=== PATIENT | female | born 1995 | race Caucasian/White ===

== ENCOUNTER 2018-08-06 16:29 | Emergency (ER) | payer BC ==
--- NOTE | 2018-08-06 16:34 | ERPHSYRPT ---
- History of Present Illness Time Seen by Provider: 08/06/18 16:33 Historian: patient, EMS Exam Limitations: no limitations Physician History: 22 y/o white female presents with sudden onset of suprapubic abd pain. had associated vaginal bleeding with urination. no diarrhea. pt started on a new ocp approx 1 month ago. lmp was in may 2018. pt brought into ed by ems. pt given fentanyl iv en route to here Timing/Duration: today, worse Quality: sharpness, stabbing Abdominal Pain Onset Location: suprapubic Pain Radiation: no radiation Severity of Pain-Max: moderate Severity of Pain-Current: mild Modifying Factors: Improves With: analgesics (helped) Associated Symptoms: nausea, vomiting Previous symptoms: no prior history Allergies/Adverse Reactions: No Known Drug Allergies Allergy (Verified 08/06/18 16:38) Home Medications: Norgestimate-Ethinyl Estradiol [Sprintec 28 Day Tablet] 1 tab PO DAILY 08/06/18 [History] - Review of Systems Constitutional: No Symptoms Eyes: No Symptoms Ears, Nose, & Throat: No Symptoms Respiratory: No Symptoms Cardiac: No Symptoms Abdominal/Gastrointestinal: Abdominal Pain, Nausea, Vomiting, No Diarrhea Genitourinary Symptoms: No Symptoms Musculoskeletal: No Symptoms Skin: No Symptoms Neurological: No Symptoms Psychological: No Symptoms Endocrine: No Symptoms Hematologic/Lymphatic: No Symptoms Immunological/Allergic: No Symptoms All Other Systems: Reviewed and Negative - Past Medical History Neurological History: No Pertinent History ENT History: No Pertinent History Cardiac History: No Pertinent History Respiratory History: No Pertinent History Endocrine Medical History: No Pertinent History Musculoskeletal History: No Pertinent History GI Medical History: No Pertinent History History: No Pertinent History Female Reproductive Disorders: Menstrual Problems - Past Surgical History Neuro Surgical History: No Pertinent History Cardiac: No Pertinent History Respiratory: No Pertinent History Gastrointestinal: No Pertinent History Genitourinary: No Pertinent History Musculoskeletal: No Pertinent History Female Surgical History: No Pertinent History - Nursing Vital Signs Nursing Vital Signs: Initial Vital Signs Temperature 98.0 F 08/06/18 16:31 Pulse Rate 85 08/06/18 16:31 Respiratory Rate 16 08/06/18 16:31 Blood Pressure 140/79 08/06/18 16:31 O2 Sat by Pulse Oximetry 96 08/06/18 16:31 Pain Scale Pain Intensity 6 - Physical Exam General Appearance: mild distress, alert, anxiety Eye Exam: PERRL/EOMI Ears, Nose, Throat Exam: normal ENT inspection, moist mucous membranes Neck Exam: normal inspection, non-tender, supple, full range of motion Respiratory Exam: normal breath sounds, lungs clear, airway intact, No chest tenderness, No respiratory distress Cardiovascular Exam: regular rate/rhythm, normal heart sounds, normal peripheral pulses Gastrointestinal/Abdomen Exam: soft, normal bowel sounds, tenderness (mild suprapubic), guarding, No rebound Pelvic Exam: not done Rectal Exam: not done Back Exam: normal inspection, normal range of motion, No CVA tenderness, No vertebral tenderness Neurologic Exam: alert, oriented x 3, cooperative, account manager II-XII nml as tested Skin Exam: normal color, warm, dry Lymphatic Exam: No adenopathy SpO2 Interpretation: normal O2 Delivery: Room Air - Course Nursing assessment & vital signs reviewed: Yes Ordered Tests: Active Orders 24 hr Category Date Time Status ABDOMEN AND PELVIS W/0 CONTRAS [CT] Stat Exams 08/06/18 16:37 Taken AMYLASE Stat Lab 08/06/18 16:45 Completed CBC W DIFF Stat Lab 08/06/18 16:45 Completed CMP Stat Lab 08/06/18 16:45 Completed HCG QUALITATIVE,SERUM Stat Lab 08/06/18 16:45 Completed LIPASE Stat Lab 08/06/18 16:45 Completed Lactic Acid Stat Lab 08/06/18 17:00 Results UA W/RFX UR CULTURE Stat Lab 08/06/18 18:09 Completed Medication Summary Generic Name Dose Route Start Last Admin Trade Name Freq PRN Reason Stop Dose Admin Sodium Chloride 1,000 mls @ 999 mls/hr 08/06/18 18:32 Sodium Chloride 0.9% 1000 Ml IV 08/06/18 19:32 .Q1H1M STA Discontinued Medications Generic Name Dose Route Start Last Admin Trade Name Freq PRN Reason Stop Dose Admin Hydromorphone HCl 0.5 mg 08/06/18 16:38 08/06/18 17:46 Hydromorphone 1 Mg/Ml Ampule IV 08/06/18 16:39 0.5 mg STAT ONE Administration Hydromorphone HCl Confirm 08/06/18 17:44 Hydromorphone 1 Mg/Ml Ampule Administered 08/06/18 17:45 Dose 1 mg .ROUTE .STK-MED ONE Sodium Chloride 1,000 mls @ 999 mls/hr 08/06/18 16:38 08/06/18 17:59 Sodium Chloride 0.9% 1000 Ml IV 08/06/18 17:38 Infused .Q1H1M STA Infusion Sodium Chloride Confirm 08/06/18 16:49 Sodium Chloride 0.9% 1000 Ml Administered 08/06/18 16:50 Dose 1,000 mls @ ud .ROUTE .STK-MED ONE Sodium Chloride Confirm 08/06/18 17:44 Sodium Chloride 0.9% 1000 Ml Administered 08/06/18 17:45 Dose 1,000 mls @ ud .ROUTE .STK-MED ONE Ondansetron HCl 4 mg 08/06/18 16:38 08/06/18 17:46 Zofran 4 Mg/2 Ml Vial IV 08/06/18 16:39 4 mg STAT ONE Administration Ondansetron HCl Confirm 08/06/18 17:44 Zofran 4 Mg/2 Ml Vial Administered 08/06/18 17:45 Dose 4 mg .ROUTE .STK-MED ONE Lab/Rad Data: Laboratory Result Diagrams 08/06/18 16:45 08/06/18 16:45 Laboratory Results 08/06/18 08/06/18 08/06/18 Range/Units 18:09 17:00 16:45 WBC (4.0-10.5) K/mm3 RBC (4.1-5.4) M/mm3 Hgb (12.0-16.0) gm/dl Hct (35-47) % MCV (78-100) fl MCH (26-32) pg MCHC (32-36) g/dl RDW (11.5-14.0) % Plt Count (150-450) K/mm3 MPV (6-9.5) fl Gran % (36.0-66.0) % Eos # (Auto) (0-0.5) Absolute Lymphs (auto) (1.0-4.6) Absolute Monos (auto) (0.0-1.3) Lymphocytes % (24.0-44.0) % Monocytes % (0.0-12.0) % Eosinophils % (0.00-5.0) % Basophils % (0.0-0.4) % Absolute Granulocytes (1.4-6.9) Basophils # (0-0.4) Sodium (137-145) mmol/L Potassium (3.5-5.1) mmol/L Chloride (98-107) mmol/L Carbon Dioxide (22-30) mmol/L Anion Gap (5-15) MEQ/L BUN (7-17) mg/dL Creatinine (0.52-1.04) mg/dL Estimated GFR ML/MIN Glucose (74-106) mg/dL Lactic Acid 2.8 H (0.4-2.0) Calcium (8.4-10.2) mg/dL Total Bilirubin (0.2-1.3) mg/dL AST (14-36) U/L ALT (0-35) U/L Alkaline Phosphatase (38-126) U/L Serum Total Protein (6.3-8.2) g/dL Albumin (3.5-5.0) g/dL Amylase (30-110) U/L Lipase (23-300) U/L Serum , Qual NEGATIVE (Negative) Urine Color YELLOW (YELLOW) Urine Appearance CLEAR (CLEAR) Urine pH 5.0 (5-6) Ur Specific [place] 1.020 (1.005-1.025) Urine Protein NEGATIVE (Negative) Urine Ketones MODERATE (NEGATIVE) Urine Blood MODERATE (0-5) Cruz/ul Urine Nitrite NEGATIVE (NEGATIVE) Urine Bilirubin NEGATIVE (NEGATIVE) Urine Urobilinogen NEGATIVE (0-1) mg/dL Ur Leukocyte Esterase NEGATIVE (NEGATIVE) Urine WBC (Auto) 3-5 (0-5) /HPF Urine RBC (Auto) 0-2 (0-2) /HPF U Epithel Cells (Auto) RARE (FEW) /HPF Urine Bacteria (Auto) RARE (NEGATIVE) /HPF Other Casts (Auto) NEGATIVE (NEGATIVE) /LPF Urine Mucus (Auto) MODERATE (NEGATIVE) /HPF Urine Culture Reflexed NO (NO) Urine Glucose NEGATIVE (NEGATIVE) mg/dL 08/06/18 08/06/18 Range/Units 16:45 16:45 WBC 15.0 H (4.0-10.5) K/mm3 RBC 4.34 (4.1-5.4) M/mm3 Hgb 13.2 (12.0-16.0) gm/dl Hct 39.3 (35-47) % MCV 90.6 (78-100) fl MCH 30.4 (26-32) pg MCHC 33.6 (32-36) g/dl RDW 12.0 (11.5-14.0) % Plt Count 302 (150-450) K/mm3 MPV 9.9 H (6-9.5) fl Gran % 83.6 H (36.0-66.0) % Eos # (Auto) 0.07 (0-0.5) Absolute Lymphs (auto) 1.80 (1.0-4.6) Absolute Monos (auto) 0.57 (0.0-1.3) Lymphocytes % 12.0 L (24.0-44.0) % Monocytes % 3.8 (0.0-12.0) % Eosinophils % 0.5 (0.00-5.0) % Basophils % 0.1 (0.0-0.4) % Absolute Granulocytes 12.51 H (1.4-6.9) Basophils # 0.02 (0-0.4) Sodium 138 (137-145) mmol/L Potassium 3.7 (3.5-5.1) mmol/L Chloride 106 (98-107) mmol/L Carbon Dioxide 19 L (22-30) mmol/L Anion Gap 16.9 H (5-15) MEQ/L BUN 18 H (7-17) mg/dL Creatinine 0.71 (0.52-1.04) mg/dL Estimated GFR > 60.0 ML/MIN Glucose 125 H (74-106) mg/dL Lactic Acid (0.4-2.0) Calcium 9.0 (8.4-10.2) mg/dL Total Bilirubin 0.60 (0.2-1.3) mg/dL AST 23 (14-36) U/L ALT 14 (0-35) U/L Alkaline Phosphatase 54 (38-126) U/L Serum Total Protein 7.6 (6.3-8.2) g/dL Albumin 4.1 (3.5-5.0) g/dL Amylase 103 (30-110) U/L Lipase 91 (23-300) U/L Serum , Qual (Negative) Urine Color (YELLOW) Urine Appearance (CLEAR) Urine pH (5-6) Ur Specific [place] (1.005-1.025) Urine Protein (Negative) Urine Ketones (NEGATIVE) Urine Blood (0-5) Cruz/ul Urine Nitrite (NEGATIVE) Urine Bilirubin (NEGATIVE) Urine Urobilinogen (0-1) mg/dL Ur Leukocyte Esterase (NEGATIVE) Urine WBC (Auto) (0-5) /HPF Urine RBC (Auto) (0-2) /HPF U Epithel Cells (Auto) (FEW) /HPF Urine Bacteria (Auto) (NEGATIVE) /HPF Other Casts (Auto) (NEGATIVE) /LPF Urine Mucus (Auto) (NEGATIVE) /HPF Urine Culture Reflexed (NO) Urine Glucose (NEGATIVE) mg/dL - Progress Progress: improved, re-examined Progress Note: 08/06/18 19:02 pt states she is feeling much better. does not want any more pain meds. ct scan abd/pelvis-right colon fecal stasis. otherwise negative Counseled pt/family regarding: lab results, diagnosis, need for follow-up, rad results - Departure Departure Disposition: Home Clinical Impression: Abdominal pain, Dehydration Condition: Stable Critical Care Time: No Additional Instructions: drink plenty of fluids. follow up with structural manager for further management. use ibuprofen or naproxen for pain Prescriptions: Tramadol HCl 50 mg [Ultram 50 mg] 50 mg PO TID PRN #15 tablet PRN Reason: Moderate Pain
[2018-08-06 16:38] VITALS: O2SAT 96
[2018-08-06] MEDS ORDERED: Zofran 4 MG/2 ML VIAL IV ONE (16:38)
[2018-08-06] MEDS ORDERED: Hydromorphone 1 mg/ml Ampule IV ONE (16:38)
[2018-08-06] MEDS ORDERED: Sodium Chloride 0.9% 1000 ML 1,000 ML IV STA ×2 (16:38→18:32)
[2018-08-06] MEDS ORDERED: Sodium Chloride 0.9% 1000 ML 0 ML ONE (16:49)
[2018-08-06 16:53] LABS: BASOPHIL % 0.1 % (0.0-0.4); Basophil (Absolute #) 0.02 (0-0.4); Eosinophil % 0.5 % (0.00-5.0); Eosinophil (Absolute #) 0.07 (0-0.5); Granulocyte Absolute (ANC) 12.51 (1.4-6.9); Granulocytes % 83.6 % (36.0-66.0); Hematocrit 39.3 % (35-47); Hemoglobin 13.2 gm/dl (12.0-16.0); Mean Cell Volume 90.6 fl (78-100); Mean Corpuscular Hemoglobin 30.4 pg (26-32); Mean Corpuscular Hgb Concent. 33.6 g/dl (32-36); Mean Platelet Volume 9.9 fl (6-9.5); Monocytes % 3.8 % (0.0-12.0); Platelet Count 302 K/mm3 (150-450); Red Blood Count 4.34 M/mm3 (4.1-5.4)
[2018-08-06 17:02] LABS: Lactic Acid 2.8 (0.4-2.0)
[2018-08-06 17:08] LABS: ALBUMIN 4.1 g/dL (3.5-5.0); ALKALINE PHOSPHATASE 54 U/L (38-126); AMYLASE 103 U/L (30-110); ANION GAP 16.9 MEQ/L (5-15); BLOOD UREA NITROGEN 18 mg/dL (7-17); CHLORIDE 106 mmol/L (98-107); Carbon Dioxide 19 mmol/L (22-30); Creatinine 1 0.71 mg/dL (0.52-1.04); Glucose 125 mg/dL (74-106); LIPASE 91 U/L (23-300); Potassium 3.7 mmol/L (3.5-5.1); SGOT/AST 23 U/L (14-36); SGPT/ALT 14 U/L (0-35); SODIUM 138 mmol/L (137-145); Total Protein 7.6 g/dL (6.3-8.2)
[2018-08-06] MEDS ORDERED: Zofran 4 MG/2 ML VIAL ONE (17:44)
[2018-08-06] MEDS ORDERED: Sodium Chloride 0.9% 1000 ML 1,000 ML ONE (17:44)
[2018-08-06] MEDS ORDERED: Hydromorphone 1 mg/ml Ampule ONE (17:44)
[2018-08-06 17:52] VITALS: BP 126/94; PULSE 102
[2018-08-06 18:22] LABS: Appearance CLEAR (CLEAR); Bacteria RARE /HPF (NEGATIVE); Bilirubin NEGATIVE (NEGATIVE); Blood MODERATE Ery/ul (0-5); Epithelial Cells RARE /HPF (FEW); Glucose NEGATIVE (NEGATIVE); Ketones MODERATE (NEGATIVE); Leukocyte Esterase NEGATIVE (NEGATIVE); Mucus MODERATE /HPF (NEGATIVE); Nitrite NEGATIVE (NEGATIVE); Protein,Urine Dip NEGATIVE (Negative); RBC 0-2 /HPF (0-2); Urobilinogen NEGATIVE mg/dL (0-1)
--- NOTE | 2018-08-07 08:38 | XRAY ---
Indication: Abdominal pain. Vomiting. Vaginal bleeding. Multiple contiguous axial images obtained through the abdomen and pelvis without contrast using renal stone protocol. Comparison: None Lung bases are clear. Heart is not enlarged. No renal calculus or evidence for obstructive uropathy in either system. Noncontrasted stomach and bowel loops appear nonobstructed. Normal appendix. Moderate fecal debris in the right hemicolon. No free fluid/air. Remaining liver, gallbladder, pancreas, spleen, adrenal glands, kidneys, ureters, bladder, uterus, and aorta appear unremarkable for noncontrast exam. Osseous structures intact. No ventral or inguinal hernias. Impression: 1. Negative renal calculus or evidence for obstructive uropathy. 2. Incidental fecal stasis without obstruction. 3. Remaining CT abdomen/pelvis without contrast exam is negative. CT DI 11.82
== END 2018-08-06 19:29 | disposition home or self-care (01) ==
LOC: ED 16:29
DX: R10.9 Unspecified abdominal pain (principal); E86.0 Dehydration
CPT/HCPCS: 36415; 74176; 80053; 81001; 81025; 82150; 83605; 83690; 85025; 96360; 96374; 96375; 99284; J1170; J2405

== ENCOUNTER 2023-04-16 05:53 | Day surgery (SDC) | payer OTHER, BC ==
[~2023-04-16 05:53] MED LIST: CEFAZOLIN 2 GM-D5W BAG** 2 GM/50 ML ML IV ONE; Lactated Ringers 1,000 ML IV ONE; NEURONTIN ONE; TYLENOL EXTRA STRENGTH 500 MG ONE; Transderm Scop 1.5MG Patch ONE; celeBREX 100 MG ONE
[2023-04-16] MEDS: Lactated Ringers 1,000 ML IV SCH (05:58)
[2023-04-16] MEDS: TYLENOL EXTRA STRENGTH 500 MG PO ONE (05:59)
[2023-04-16] MEDS: celeBREX 100 MG PO ONE (05:59)
[2023-04-16] MEDS: CEFAZOLIN 2 GM-D5W BAG** 2 GM/50 ML ML IV SCH (05:59)
[2023-04-16] MEDS: Decadron 4 MG PO ONE (05:59)
[2023-04-16] MEDS: NEURONTIN PO ONE (06:00)
[2023-04-16] MEDS: Transderm Scop 1.5MG Patch TOP ONE (06:00)
[2023-04-16] MEDS ORDERED: Decadron 4 MG INJ IV ONE (06:00)
[2023-04-16 06:11] LABS: HCG URINE TEST NEGATIVE (NEGATIVE)
[2023-04-16] MEDS ORDERED: Xylocaine-Mpf 2% 5 Ml Vial ONE (06:25)
[2023-04-16] MEDS ORDERED: Epinephrine Preservative Free 1 MG/ML ONE (06:25)
[2023-04-16] MEDS ORDERED: Versed 2 MG/2 ML Injection ONE (06:25)
[2023-04-16] MEDS ORDERED: Naropin 0.5% 30 ML VIAL ONE (06:25)
[2023-04-16] MEDS ORDERED: SUBLIMAZE 100 MCG/2 ML ONE ×2 (06:26→07:05)
[2023-04-16 06:31] LABS: Hematocrit 43.6 % (35-47); Hemoglobin 13.9 g/dL (12.0-16.0); Mean Cell Volume 87.4 fL (78-100); Mean Corpuscular Hemoglobin 27.9 pg (26-32); Mean Corpuscular Hgb Concent. 31.9 g/dL (32-36); Mean Platelet Volume 9.4 fL (7.5-11.0); Platelet Count 327 x10^3/uL (150-450); Red Blood Count 4.99 x10^6/uL (4.1-5.4); Red Cell Distribution Width 12.7 % (11.5-14.0)
[2023-04-16] MEDS ORDERED: Zofran 4 MG/2 ML VIAL ONE (06:34)
[2023-04-16] MEDS ORDERED: BRIDION 200MG/2ML IV ONE (06:34)
[2023-04-16] MEDS ORDERED: Zemuron 100 MG/10 ML ONE ×3 (06:34→08:49)
[2023-04-16] MEDS ORDERED: Decadron 4 MG INJ ONE (06:34)
[2023-04-16] MEDS ORDERED: DIPRIVAN 200 MG/20 ML IV ONE (06:35)
[2023-04-16 06:38] LABS: ALBUMIN 4.7 g/dL (3.5-5.0); ANION GAP 12.7 MEQ/L (5-15); BILIRUBIN,TOTAL 0.4 mg/dL (0.2-1.3); Calcium 9.8 mg/dL (8.4-10.2); Creatinine 1 0.7 mg/dL (0.52-1.04); INR 0.92 (0.8-3.0); PROTIME 10.1 SECONDS (9.4-12.5); Total Protein 8.2 g/dL (6.3-8.2)
[2023-04-16] MEDS ORDERED: Lactated Ringers 1,000 ML IV ONE ×2 (07:20→11:18)
[2023-04-16] MEDS ORDERED: REMIFENTANIL HCL IV ONE (09:01)
--- NOTE | 2023-04-16 10:49 | XRAY ---
Indication: Right foot pierre calcanealosteotomy, 2nd/3rd tarsometatarsal arthrodesis, and 1st lapidus arthrodesis. Intraoperative fluoroscopy provided for 6 minutes 59 seconds. 35 digital spot images submitted for interpretation ultimately demonstrates osteotomy anterior calcaneus and 1st-3rd tarsometatarsal arthrodesis. Correlate with intraoperative findings/report.
[2023-04-16 12:12] LABS: Appearance Clear (Clear); Bacteria None Seen /HPF (None Seen); Bilirubin Negative (Negative); Blood Negative (Negative); Epithelial Cells None Seen /HPF (None Seen); Glucose, Urine Negative (Negative); Hyaline Casts NONE SEEN /LPF (0-2); Ketones Negative (Negative); Leukocyte Esterase Negative (Negative); Nitrite Negative (Negative); Ph 6.5 (4.6-8.0); Protein,Urine Dip Negative (Negative); RBC 0-2 /HPF (0-5); Urobilinogen 0.2 mg/dL (0.2); WBC 0-2 /HPF (0-5)
[2023-04-16 12:38] VITALS: RESP 16
[2023-04-16] MEDS: Compazine 10 MG/2 ML IV ONE (12:45)
[2023-04-16 13:16] VITALS: O2SAT 96
[2023-04-16 13:32] VITALS: BP 111/67; PULSE 97; TEMP 98.2
--- NOTE | 2023-04-16 13:45 | XRAY ---
Six minutes and 59 seconds of fluoroscopy was used in surgery for a right foot pierre calcanealosteotomy, 2nd/3rd tarsometatarsal arthrodesis, and 1st lapidus arthrodesis.
--- NOTE | 2023-04-17 11:05 | OP ---
SURGERY DATE/TIME: 04/16/2023 0706 PREOPERATIVE DIAGNOSES: 1) Gastrocnemius equinus. 2) Right foot pain. 3) Skewfoot. 4) Pes planus. 5) Metatarsus adductus. 6) Ganglion cyst. 7) Hallux valgus. POSTOPERATIVE DIAGNOSES: 1) Gastrocnemius equinus. 2) Right foot pain. 3) Skewfoot. 4) Pes planus. 5) Metatarsus adductus. 6) Ganglion cyst. 7) Hallux valgus. PROCEDURES: 1) Gastrocnemius resection. 2) Tarsometatarsal joint arthrodesis 2 and 3 with skewfoot correction. 3) Lapidus arthrodesis. 4) Silver osteotomy. 5) Medial collateral ligament soft tissue augmentation with internal brace. 6) Zaidi calcaneal osteotomy. 7) Ganglion cyst excision. SURGEON: Evangelista Blackburn DPM. HAND FABRIC CUTTER: None. ANESTHESIA: General plus a preoperative popliteal and saphenous block to the right lower extremity. See anesthesia report for details. HEMOSTASIS: Thigh tourniquet set 300 mm of Mercury for 120 total tourniquet time minutes. ESTIMATED BLOOD LOSS: Approximately 20 cc. MATERIALS: Theron InCore Lapidus first tarsometatarsal 3.4 x 24 mm x2 for second and third tarsometatarsal joint arthrodesis. RIPTIDE wedge 21 x 17.5 x 7 with demineralized bone matrix and then a 1.45 soft tissue anchor for the soft tissue augmentation first metatarsophalangeal joint. 4-0 Monocryl, 3-0 Nylon, 2-0 Vicryl, 1 cc demineralized bone matrix (DBM). INJECTABLES: See anesthesia report for details. INDICATION FOR SURGERY: Georgette is a very pleasant 27-year-old patient known to my service for pain associated with a bunion to her right foot. The patient was seen in the past primarily for onychomycosis for which we are currently treating. However, she did have some pain associated with a ganglion cyst that has occurred over the last two years and slowly growing over the last two years as well as bunion deformity to the right foot that causes a significant amount of pain to the bunion itself and over the dorsal aspect of the mid foot. 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 The patient understood at that time after repeat surgical consultations that this was a bit more complicated than initially expected than a simple bunion. From that standpoint, discussion was held in regards to how we correct skewfoot as there is a pes planus foot type at the rear foot, higher arch at the mid foot and metatarsus adductus of the forefoot that all need to be corrected in order to get rid of the bone deformity itself. Initially when consulting regarding the bone, usually about three weeks for nonweight bearing. However, given that there would be more reconstructive component to the procedure, the patient understands she will need to be nonweight bearing for approximately 6 weeks in the postoperative period for full weightbearing to tolerance will be at 6 to 12 weeks in a pair of shoes. The patient understands this. She was also consented for any risks, complications and benefits of surgical intervention which were discussed at length. Potential complications were discussed including but not limited to infection, hematoma, seroma, possibility of delayed wound healing, nonwound healing, possible failure of surgical intervention, possible under correction and possible continued pain following the procedure. The patient understands these risks. No guarantees were provided as to the outcome. Primarily with these procedures over the dorsal aspect of the mid foot sometimes there is nerve compression injury or possible nerve damage that can last for some period of time if not permanent this is one degree of the process that we stress with this specific procedure. The patient understands this and wishes to proceed at this time. DESCRIPTION OF PROCEDURE AND FINDINGS: The patient was brought into the postoperative anesthesia care unit and provided a popliteal and saphenous block. See anesthesia report for details. Following this, the patient was brought into the OR and placed on the OR table in the supine position. At this time, general anesthesia was administered until the patient was adequately sedated. A well-padded thigh tourniquet was applied and the pressure was set to 300 mm of Mercury. At this time, the right lower extremity was prepped and draped in the typical sterile fashion and lowered onto the surgical field. At this time, the posterior medial aspect of the palpable dell of the gastrocnemius muscle belly and lower extremity at the distal one-third of the leg, incision was carried down to the level of the crural fascia utilizing sharp and blunt dissection. Following this the crural fascia was incised and blunt dissection was carried down to the level of the gastrocnemius aponeurosis. Pediatric speculum was introduced rotated at 90 degrees and excellent visualization of the gastrocnemius aponeurosis was then identified. The sural nerve was identified at the lateral aspect of the wound under direct visualization and retraction out of the way. A 10 blade was utilized to make an incision through the gastrocnemius aponeurosis making sure not to gouge into the muscle belly below. Following this the pediatric speculum was removed and any constrictures that wre identified were severed utilizing a heavy pair of tenotomy scissors. Following this copious amounts of sterile saline were utilized to flush the surgical site. The crural fascia as well as the subcu were coapted with 2-0 Nylon in a simple interrupted buried-type fashion. Following this, 3-0 Nylon was utilized to coapt the skin edges in horizontal mattress-type fashion. We did make a linear incision over the bisection of the anterior process of the calcaneus utilizing a 15 blade being careful through the dissection process to not damage any neurovascular structures. The sural nerve was encountered and retracted plantarly. The peroneal tendons were identified. Their sheath was incised and once identified were retracted plantarly as well. A measure was utilized to identify 1 to 1.5 from the calcaneocuboid joint and two pins were placed from that surface being perpendicular to the weightbearing surface which was checked on lateral and on foot axial views. Following this, sequential osteotomes were utilized to open up the lateral wall of the calcaneus at the site and a 21 x 17.5 x 7 RIPTIDE wedge with demineralized bone matrix was introduced and gaining excellent reduction of the rear foot to mid foot position. Attention was directed to the dorsal aspect of the first tarsometatarsal joint as well as the division between the second and third tarsometatarsal joint where linear incision was made over both of these sites first dissecting out the medial aspect of the tarsometatarsal joint of the first in order to get access to the first tarsometatarsal joint later and allow for appropriate correction of the skewfoot deformity. From that standpoint, dissection was carried out over the dorsal aspect of the second and third tarsometatarsal joint which was easily identified under fluoroscopic guidance which was carried down making sure not to damage any neurovascular structures. Following this a lateral release was carried out at the lateral aspect of the first metatarsophalangeal joint where we seen the suspensory ligaments from the fibular sesamoid to allow for better correction of the sesamoids later as well as easier correction for the lapidus arthrodesis at later time in the procedure. Following this, attention was directed to the dorsal aspect of the tarsometatarsal joints where a wedge with its wider section being based laterally and with respect to the patient's significant metatarsus adductus was resected with approximately a 3 mm wedge to a taper at the medial aspect of the second tarsometatarsal joint. At this time, the joint was then resected of any remaining cartilage. The joint was then prepped and then pinned in the appropriate position. Following this attention was directed back to the first tarsometatarsal joint where per provider specifications, the InCore Lapidus arthrodesis system was utilized to resect out the joint and gain excellent reduction of the bunion deformity. The Lapidus arthrodesis was completed from site project manager specifications. From this standpoint, position was checked under footplate and deemed to be excellent. There was some residual atavistic deformity to the metatarsal head which led to proceeding with the Silver osteotomy, some abduction of the hallux was identified as well and medial collateral ligament soft tissue augmentation utilizing a 1.45 JuggerKnot to pull the toe back into the appropriate position. The capsule was then coapted over the top and position was held while securing this. From that standpoint final x-rays were taken deeming to be in adequate and excellent position. A linear incision was made over the ganglion cyst over the dorsal lateral aspect of the foot. Careful attention was made to prevent any damage to the superficial peroneal nerve at the dorsal aspect of the mid foot. The cyst was able to be excised in toto in its encapsulation measuring approximately 3.5 x 2.5. The ends were cauterized at the stalk to prevent the possibility of recurrence. Following this copious amounts of sterile saline were utilized to flush all surgical sites. 4-0 Monocryl was utilized to coapt the subcutaneous edges with simple interrupted buried type fashion and following this, 3-0 and 4-0 Nylon were utilized to coapt the skin edge in a horizontal mattress-type fashion for all sites. A dressing consisting of Betadine, Adaptic, 4x4, Kerlix, ABD and a well-padded posterior splint with Sugar-Tong. The patient was then reversed from anesthesia and returned to the postoperative anesthesia care unit with vital signs stable and vascular status intact. Patient handled the anesthesia as well as the procedure without significant complication. Postoperative orders as indicated in the patient's discharge chart.
== END 2023-04-16 13:55 | disposition home or self-care (01) ==
LOC: SDC 05:53
PROVIDERS: ATTEND Podiatrist Foot & Ankle Surgery
DX: Q66.221 Congenital metatarsus adductus, right foot (principal); M79.671 Pain in right foot; M67.471 Ganglion, right ankle and foot; M62.461 Contracture of muscle, right lower leg; Q66.89 Other specified congenital deformities of feet
CPT/HCPCS: 25111; 26540; 27687; 28292; 28297; 28300; 28730; 73630; 76000; 76937; 80053; 81001; 81025; 85027; 85610; 87086; C1889; J0171; J0690; J1100; J2250; J2405; J2704; J2795; J3010; A9270-GY